=== PATIENT | male | born 1995 | race Hispanic/Latino ===

== ENCOUNTER 2021-05-20 19:21 | Emergency (ER) | payer OTHER ==
[~2021-05-20] VITALS: Ht 177.8 cm; Wt 81.8 kg
[2021-05-20 19:22] VITALS: BP 131/81
[2021-05-20 20:15] LABS: BASO % 0.4 % (0.0-1.0); EOS # 0.1 10^3/uL (0.0-0.5); EOS % 0.7 % (0.0-3.0); HEMATOCRIT 48.7 % (42.0-52.0); HEMOGLOBIN 16.3 g/dl (13.5-17.5); LYMPH # 1.5 10^3/uL (1.5-5.0); LYMPH % 21.5 % (24.0-44.0); MEAN CORPUSCULAR HEMOGLOBIN 30.1 pg (27.0-33.0); MEAN CORPUSCULAR HGB CONC 33.5 g/dl (32.0-36.5); MONO # 0.5 10^3/uL (0.0-0.8); MONO % 7.1 % (2.0-8.0); NEUTROPHILS # 4.9 10^3/uL (1.5-8.5); PLATELET COUNT, AUTOMATED 214 10^3/uL (150-450); RED BLOOD COUNT 5.41 10^6/uL (4.30-6.10)
[2021-05-20 20:44] LABS: ALBUMIN 4.2 GM/DL (3.2-5.2); ALT/SGPT 30 U/L (12-78); BILIRUBIN,DIRECT 0.2 MG/DL (0.0-0.2); BLOOD UREA NITROGEN 25 MG/DL (7-18); CALCIUM LEVEL 9.2 MG/DL (8.5-10.1); CARBON DIOXIDE LEVEL 27 MEQ/L (21-32); CHLORIDE LEVEL 106 MEQ/L (98-107); CREATININE FOR GFR 0.86 MG/DL (0.70-1.30); GLOMERULAR FILTRATION RATE > 60.0 (>60); GLUCOSE, FASTING 92 MG/DL (70-100); LIPASE 143 U/L (73-393); POTASSIUM SERUM 4.3 MEQ/L (3.5-5.1); SODIUM LEVEL 140 MEQ/L (136-145); TOTAL PROTEIN 7.9 GM/DL (6.4-8.2)
[2021-05-20] MEDS ORDERED: DICYCLOMINE 10 MG CAP PO ONE ×2 (21:30→23:20)
[2021-05-20] MEDS ORDERED: NS 1,000 ML IV ONE (21:30)
[2021-05-20] MEDS ORDERED: ISOVUE-370 76% 100ML VIAL As Ordered ONE (21:45)
== END 2021-05-20 23:30 | disposition home or self-care (01) ==
LOC: M ED 19:21
DX: K52.9 Noninfective gastroenteritis and colitis, unspecified (principal); Z90.89 Acquired absence of other organs
CPT/HCPCS: 74177; 80048; 80076; 81001; 83690; 85025; 96360; 99283; Q9967